=== PATIENT | male | born 1970 | race African-American/Black ===

== ENCOUNTER 2017-12-29 09:17 | Inpatient (IN) | payer OTHER ==
[2017-12-29 10:21] VITALS: BMI 29.2
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
[2017-12-29] MEDS ORDERED: MENTHOL/PHENOL 1 EACH UD MM PRN (14:28)
[2017-12-29] MEDS ORDERED: MAGNESIUM CITRATE 300 ML BOTTLE PO PRN (14:28)
[2017-12-29] MEDS ORDERED: MAG HYDROX/AL HYDROX/SIMETH 30 ML UNIT-DOSE CUP PO PRN (14:28)
[2017-12-29] MEDS ORDERED: LOPERAMIDE HCL 2 MG CAPSULE PO PRN (14:28)
[2017-12-29] MEDS ORDERED: MAGNESIUM HYDROX 2400MG/30ML ORAL SUSPENSION 30 ML CUP PO PRN (14:28)
[2017-12-29] MEDS ORDERED: P-EPHED 60MG/TRIPROLIDI 2.5MG TABLET PO PRN (14:28)
[2017-12-29] MEDS ORDERED: guaiFENesin/D-METHORPHAN HB 10 ML UNIT-DOSE CUPS PO PRN (14:28)
[2017-12-29] MEDS ORDERED: NICOTINE POLACRILEX 4 MG GUM BUC PRN (14:28)
[2017-12-29] MEDS ORDERED: METOPROLOL TARTRATE 50 MG TABLET (FP) PO ONE (15:42)
[2017-12-29] MEDS: NICOTINE 21 MG/24 HOURS TOPICAL PATCH TD SCH (15:43)
[2017-12-29] MEDS: DOCUSATE SODIUM 100 MG CAPSULE (FP) PO SCH ×2 (15:43→22:22)
[2017-12-29] MEDS: chlordiazePOXIDE HCL 25 MG CAPSULE PO PRN (15:45)
[2017-12-29] MEDS: chlordiazePOXIDE HCL 25 MG CAPSULE PO SCH ×2 (17:23→22:22)
[2017-12-29] MEDS: ACETAMINOPHEN 325 MG TABLET (FP) PO PRN (18:46)
[2017-12-29] MEDS ORDERED: MELATONIN 5 MG TABLETS PO PRN (22:00)
[2017-12-29] MEDS: THIAMINE HCL 100 MG TABLET (FP) PO SCH (22:23)
[2017-12-30 02:07] LABS: URINE APPEARANCE CLEAR; URINE BILIRUBIN NEGATIVE (<2.0 mg/dL); URINE COLOR STRAW; URINE GLUCOSE (UA) NEGATIVE (NEGATIVE); URINE KETONE NEGATIVE (NEGATIVE); URINE LEUK ESTERASE NEGATIVE (NEGATIVE); URINE NITRITE NEGATIVE (NEGATIVE); URINE PROTEIN NEGATIVE (NEGATIVE); URINE UROBILINOGEN NEGATIVE mg/dL (0.2-1.0)
[2017-12-30] MEDS: chlordiazePOXIDE HCL 25 MG CAPSULE PO SCH ×4 (05:50→22:17)
[2017-12-30] MEDS: DOCUSATE SODIUM 100 MG CAPSULE (FP) PO SCH ×3 (05:50→22:17)
[2017-12-30] MEDS ORDERED: amLODIPine BESYLATE 10 MG TABLET (FP) PO SCH (10:00)
[2017-12-30] MEDS: METOPROLOL TARTRATE 50 MG TABLET (FP) PO SCH (10:06)
[2017-12-30] MEDS: HYDROCHLOROTHIAZIDE 25 MG TABLET (FP) PO SCH (10:06)
[2017-12-30] MEDS: NICOTINE 21 MG/24 HOURS TOPICAL PATCH TD SCH (10:07)
[2017-12-30] MEDS: PRENATAL VITAMINS W/ FOLIC ACID TABLET (FP) PO SCH (10:07)
--- NOTE | 2017-12-30 16:22 | CONSULT ---
[facility] Psychiatric Consult - Data Date of interview: 12/30/17 Admission source: [facility] Identifying data: Firts admission to [facility] for this 47 y/o AA male seeking vdetox treatment on for alcohol and cannabis dependence.Patient is single,a father of three,homeless,unemployed and deprived of income. Substance Abuse History: Discussed in this interview.Patient cofirms the following [facility] report : Smoking history: Current every day smoker. Have you smoked in the past 12 months: Yes. Aproximately how many cigarettes per day: 15. Cigars Per Day: 0. Hx Chewing Tobacco Use: No. Initiated information on smoking cessation: Yes. 'Breaking Loose' booklet given: 12/29/17. - Substance & Tx. History. Hx Alcohol Use: Yes. Hx Substance Use: Yes. Substance Use Type : Alcohol, Marijuana. Hx Substance Use Treatment: Yes (11/2017 [facility]) . - Substances Abused. Alcohol. Route: Oral. Frequency: Daily. Amount used: 2-3 fifths of rum or cognac. Age of first use: 41. Date of Last Use: . Marijuana/Hashish. Route: Smoking. Frequency: Daily. Amount used: 1/4 of an ounce. Age of first use: 41. Date of Last Use: 12/27/17 Medical History: Hypertension and dyslipidemia. Psychiatric History: Patient denies. Physical/Sexual Abuse/Trauma History: Patient denies. Additional Comment: Urine Drug Screen Results: THC-Marijuana, BZO- Benzodiazepines.Noted. Mental Status Exam - Mental Status Exam Alert and Oriented to: Time, Place, Person Cognitive Function: Good Patient Appearance: Well Groomed Mood: Withdrawn, Hopeful Affect: Appropriate, Normal Range Patient Behavior: Fatigued, Cooperative Speech Pattern: Clear Voice Loudness: Normal Thought Process: Intact, Goal Oriented Thought Disorder: Not Present Hallucinations: Denies Suicidal Ideation: Denies Homicidal Ideation: Denies Insight/Judgement: Poor Sleep: Well Appetite: Good Muscle strength/Tone: Normal Gait/Station: Normal Psychiatric Findings - Problem List ([place] 1, 2,3) (1) Alcohol dependence with uncomplicated withdrawal Current Visit: Yes Status: Acute (2) Marijuana dependence Current Visit: Yes Status: Acute (3) Nicotine dependence Current Visit: Yes Status: Acute Qualifiers: Nicotine product type: cigarettes Substance use status: in withdrawal Qualified Code(s): F17.213 - Nicotine dependence, cigarettes, with withdrawal - Initial Treatment Plan Initial Treatment Plan: Psychoeducation.Sleep hygiene.Detoxification in progress.Observation.
[2017-12-30] MEDS ORDERED: cloNIDine HCL 0.1 MG TABLET PO ONE (21:35)
--- NOTE | 2017-12-30 21:39 | PN ---
S Progress Note Note: Patient alert and oriented w/ current B/P: 178/109. On Metoprolol. Vital Signs - 24 hr 12/30/17 12/30/17 12/30/17 00:43 03:36 06:17 Temperature 97.6 F Pulse Rate 79 Respiratory 18 18 18 Rate Blood Pressure 145/86 12/30/17 12/30/17 12/30/17 09:56 13:22 17:36 Temperature 97.7 F 97.0 F L 97.6 F Pulse Rate 87 74 80 Respiratory 20 18 18 Rate Blood Pressure 172/111 153/98 158/96 12/30/17 21:12 Temperature 97.4 F L Pulse Rate 86 Respiratory 18 Rate Blood Pressure 173/109 Labs: Potassium level on 12/28/17 was 3.4. Plan: Will give CloNidine 0.2 mg PO now. Will add amlodipine to B/P daily medication regimen. Continue metoprolol. Repeat electrolytes in am. Continue detox protocol.
[2017-12-30] MEDS: THIAMINE HCL 100 MG TABLET (FP) PO SCH (22:17)
[2017-12-31] MEDS: DOCUSATE SODIUM 100 MG CAPSULE (FP) PO SCH ×3 (05:25→22:12)
[2017-12-31] MEDS: chlordiazePOXIDE HCL 25 MG CAPSULE PO SCH ×2 (05:26→10:26)
[2017-12-31 10:23] LABS: POTASSIUM 3.4 mmol/L (3.5-5.1)
[2017-12-31] MEDS: NICOTINE 21 MG/24 HOURS TOPICAL PATCH TD SCH (10:26)
[2017-12-31] MEDS: METOPROLOL TARTRATE 50 MG TABLET (FP) PO SCH (10:26)
[2017-12-31] MEDS: HYDROCHLOROTHIAZIDE 25 MG TABLET (FP) PO SCH (10:26)
[2017-12-31] MEDS: PRENATAL VITAMINS W/ FOLIC ACID TABLET (FP) PO SCH (10:26)
[2017-12-31] MEDS: amLODIPine BESYLATE 10 MG TABLET (FP) PO SCH (10:26)
[2017-12-31] MEDS: chlordiazePOXIDE 5 MG CAPSULE PO SCH ×2 (17:21→22:12)
--- NOTE | 2017-12-31 18:08 | PN ---
S CIWA - CIWA Score Nausea/Vomitin-No Nausea/No Vomiting Muscle Tremors: None Anxiety: 0-No Anxiety, at Ease Agitation: 0-Normal Activity Paroxysmal Sweats: No Perspiration Orientation: 0-Oriented Tacttile Disturbances: 0-None Auditory Disturbances: 0-None Visual Disturbances: 0-None Headache: 0-None Present CIWA-Ar Total Score: 0 BHS Progress Note (SOAP) Subjective: pt states he is OK today Obj: Vital Signs - 24 hr 12/30/17 12/31/17 12/31/17 21:12 00:30 03:30 Temperature 97.4 F L Pulse Rate 86 Respiratory 18 20 18 Rate Blood Pressure 173/109 12/31/17 12/31/17 12/31/17 06:25 11:14 13:51 Temperature 97.7 F 97.9 F 97.9 F Pulse Rate 70 80 71 Respiratory 20 20 18 Rate Blood Pressure 144/88 145/80 156/94 12/31/17 18:03 Temperature 99.6 F Pulse Rate 73 Respiratory 19 Rate Blood Pressure 161/91 Laboratory Tests 12/30/17 12/30/17 12/31/17 00:45 06:00 07:40 Sodium 141 Potassium 3.4 L Chloride 104 Carbon Dioxide 33 H Anion Gap 4 L Urine Color Straw Urine Appearance Clear Urine pH 7.0 Ur Specific [place] 1.008 Urine Protein Negative Urine Glucose (UA) Negative Urine Ketones Negative Urine Blood Negative Urine Nitrite Negative Urine Bilirubin Negative Urine Urobilinogen Negative Ur Leukocyte Esterase Negative RPR Titer Nonreactive BP high today UA WNL Active Medications Acetaminophen (Tylenol -) 650 mg PO Q4H PRN PRN Reason: FEVER Last Admin: 12/29/17 18:46 Dose: 650 mg Al Hydroxide/Mg Hydroxide (Mylanta Oral Suspension -) 30 ml PO Q6H PRN PRN Reason: DYSPEPSIA Amlodipine Besylate (Norvasc -) 10 mg PO DAILY [facility] Last Admin: 12/31/17 10:26 Dose: 10 mg Chlordiazepoxide HCl (Librium -) 15 mg PO [id number] DION Stop: 01/01/18 11:01 Last Admin: 12/31/17 17:21 Dose: 15 mg Chlordiazepoxide HCl (Librium -) 25 mg PO Q4H PRN PRN Reason: WITHDRAWAL(CONT SUBST) Stop: 01/01/18 14:27 Last Admin: 12/29/17 15:45 Dose: 25 mg Chlordiazepoxide HCl (Librium -) 10 mg PO [id number] [facility] Stop: 01/02/18 11:01 Docusate Sodium (Colace -) 100 mg PO TID [facility] Last Admin: 12/31/17 13:09 Dose: 100 mg Eucalyptus/Menthol/Phenol/Sorbitol (Cepastat Lozenge -) 1 each MM Q4H PRN PRN Reason: SORE THROAT Guaifenesin (Robitussin Dm -) 10 ml PO Q6H PRN PRN Reason: COUGH Hydrochlorothiazide (Hctz -) 25 mg PO DAILY [facility] Last Admin: 12/31/17 10:26 Dose: 25 mg Hydroxyzine Pamoate (Vistaril -) 50 mg PO Q4H PRN PRN Reason: AGITATION Ibuprofen (Motrin -) 400 mg PO Q6H PRN PRN Reason: PAIN LEVEL 4-6 Loperamide HCl (Imodium -) 4 mg PO Q6H PRN PRN Reason: DIARRHEA Magnesium Citrate (Citroma -) 300 ml PO Q48H PRN PRN Reason: CONSTIPATION Magnesium Hydroxide (Milk Of Magnesia -) 30 ml PO DAILY PRN PRN Reason: CONSTIPATION Melatonin (Melatonin) 5 mg PO HS PRN PRN Reason: INSOMNIA Metoprolol Tartrate (Lopressor -) 50 mg PO DAILY [facility] Last Admin: 12/31/17 10:26 Dose: 50 mg Nicotine (Nicoderm Patch -) 21 mg TD DAILY [facility] Last Admin: 12/31/17 10:26 Dose: 21 mg Nicotine Polacrilex (Nicorette Gum -) 4 mg BUC Q2H PRN PRN Reason: NICOTINE REPLACEMENT RX Multivit/Folic Acid/Iron ( Vitamins (Sjr) -) 1 tab PO DAILY [facility] Last Admin: 12/31/17 10:26 Dose: 1 tab Pseudoephedrine/Triprolidine (Actifed -) 1 combo PO TID PRN PRN Reason: NASAL CONGESTION Thiamine HCl (Vitamin B1 -) 100 mg PO HS [facility] Last Admin: 12/30/17 22:17 Dose: 100 mg Ass: 47 years old male with long history of alcohol nicotine dependence has hypertension- continue detox protocol, will increase dose of metoprolol if BP remains high- maybe high because of detoxing
[2017-12-31] MEDS: IBUPROFEN 400 MG TABLET (FP) PO PRN (20:50)
[2017-12-31] MEDS: THIAMINE HCL 100 MG TABLET (FP) PO SCH (22:12)
[2017-12-31] MEDS: chlordiazePOXIDE HCL 25 MG CAPSULE PO PRN (22:15)
[2018-01-01] MEDS: chlordiazePOXIDE 5 MG CAPSULE PO SCH ×2 (05:33→10:11)
[2018-01-01] MEDS: DOCUSATE SODIUM 100 MG CAPSULE (FP) PO SCH ×3 (05:33→22:08)
[2018-01-01] MEDS: amLODIPine BESYLATE 10 MG TABLET (FP) PO SCH (10:11)
[2018-01-01] MEDS: METOPROLOL TARTRATE 50 MG TABLET (FP) PO SCH (10:11)
[2018-01-01] MEDS: PRENATAL VITAMINS W/ FOLIC ACID TABLET (FP) PO SCH (10:11)
[2018-01-01] MEDS: HYDROCHLOROTHIAZIDE 25 MG TABLET (FP) PO SCH (10:11)
[2018-01-01] MEDS: NICOTINE 21 MG/24 HOURS TOPICAL PATCH TD SCH (10:11)
--- NOTE | 2018-01-01 11:17 | PN ---
S CIWA - CIWA Score Nausea/Vomitin-No Nausea/No Vomiting Muscle Tremors: 4-Moderate,w/Arms Extend Anxiety: 4-Mod. Anxious/Guarded Agitation: 4-Moderately Restless Paroxysmal Sweats: 1-Minimal Palms Moist Orientation: 0-Oriented Tacttile Disturbances: 0-None Auditory Disturbances: 0-None Visual Disturbances: 0-None Headache: 0-None Present CIWA-Ar Total Score: 13 BHS Progress Note (SOAP) Subjective: SLIGHT ANXIETY, FATIGUE. PT REPORTS DETOX PROCEEDING WELL. ALERT O X 3. Objective: 01/01/18 11:15 Vital Signs 01/01/18 01/01/18 01/01/18 03:30 06:06 10:41 Temperature 97.6 F 98.3 F Pulse Rate 68 55 L Respiratory 18 20 20 Rate Blood Pressure 145/88 176/106 Laboratory Tests 12/30/17 12/30/17 12/31/17 00:45 06:00 07:40 Sodium 141 Potassium 3.4 L Chloride 104 Carbon Dioxide 33 H Anion Gap 4 L Urine Color Straw Urine Appearance Clear Urine pH 7.0 Ur Specific [place] 1.008 Urine Protein Negative Urine Glucose (UA) Negative Urine Ketones Negative Urine Blood Negative Urine Nitrite Negative Urine Bilirubin Negative Urine Urobilinogen Negative Ur Leukocyte Esterase Negative RPR Titer Nonreactive OTHER LABS PENDING Assessment: 01/01/18 11:17 WITHDRAWAL SX Plan: CONTINUE DETOX
[2018-01-01] MEDS ORDERED: HYDROCHLOROTHIAZIDE 25 MG TABLET (FP) PO SCH (14:45)
[2018-01-01] MEDS: chlordiazePOXIDE HCL 10 MG CAPSULE PO SCH ×2 (17:40→22:08)
[2018-01-01] MEDS: hydrOXYzine PAMOATE 50 MG CAPSULE (FP) PO PRN ×2 (17:40→22:08)
[2018-01-01] MEDS: THIAMINE HCL 100 MG TABLET (FP) PO SCH (22:08)
[2018-01-01] MEDS: IBUPROFEN 400 MG TABLET (FP) PO PRN (22:10)
[2018-01-01] MEDS ORDERED: cloNIDine HCL 0.1 MG TABLET PO ONE (23:45)
[2018-01-02] MEDS: DOCUSATE SODIUM 100 MG CAPSULE (FP) PO SCH ×3 (05:01→22:04)
[2018-01-02] MEDS: chlordiazePOXIDE HCL 10 MG CAPSULE PO SCH ×2 (05:01→10:13)
[2018-01-02] MEDS: PRENATAL VITAMINS W/ FOLIC ACID TABLET (FP) PO SCH (10:13)
[2018-01-02] MEDS: NICOTINE 21 MG/24 HOURS TOPICAL PATCH TD SCH (10:13)
[2018-01-02] MEDS: amLODIPine BESYLATE 10 MG TABLET (FP) PO SCH (10:13)
[2018-01-02] MEDS: METOPROLOL TARTRATE 50 MG TABLET (FP) PO SCH (10:13)
[2018-01-02] MEDS: HYDROCHLOROTHIAZIDE 25 MG TABLET (FP) PO SCH (10:13)
[2018-01-02] MEDS ORDERED: POTASSIUM CHLORIDE ORAL LIQUID 20 MEQ/15 ML PO ONE (11:23)
--- NOTE | 2018-01-02 11:27 | PN ---
BHS Progress Note (SOAP) Subjective: ANXIETY,TREMORS,FATIGUE. Objective: 01/02/18 11:23 Vital Signs 01/02/18 01/02/18 01/02/18 03:30 06:13 09:09 Temperature 97 F L 96.2 F L Pulse Rate 68 72 Respiratory 18 20 18 Rate Blood Pressure 146/95 139/87 Laboratory Tests 12/30/17 12/30/17 12/31/17 00:45 06:00 07:40 Sodium 141 Potassium 3.4 L Chloride 104 Carbon Dioxide 33 H Anion Gap 4 L Urine Color Straw Urine Appearance Clear Urine pH 7.0 Ur Specific [place] 1.008 Urine Protein Negative Urine Glucose (UA) Negative Urine Ketones Negative Urine Blood Negative Urine Nitrite Negative Urine Bilirubin Negative Urine Urobilinogen Negative Ur Leukocyte Esterase Negative RPR Titer Nonreactive LABS DONE AT [facility] ER Assessment: 01/02/18 12:30 WITHDRAWAL SX BORDERLINE HYPOKALEMIA Plan: CONTINUE DETOX
[2018-01-02 14:39] LABS: ANION GAP 8 MMOL/L (8-16); BLOOD UREA NITROGEN 13 mg/dL (7-18); CALCIUM 9.3 mg/dL (8.5-10.1); CHLORIDE 98 mmol/L (98-107); CO2 32 mmol/L (21-32); CREATININE 1.1 mg/dL (0.7-1.3); GLUCOSE,RANDOM 233 mg/dL (74-106); POTASSIUM 3.6 mmol/L (3.5-5.1); SODIUM 138 mmol/L (136-145)
[2018-01-02] MEDS: IBUPROFEN 400 MG TABLET (FP) PO PRN (19:40)
--- NOTE | 2018-01-02 21:06 | PN ---
[facility] Progress Note Note: Patient denies w/drawal symptoms but noted to have some anxiety and tremors earlier today. CMP Sodium 138 mmol/L (136-145) 01/02/18 13:18 Potassium 3.6 mmol/L (3.5-5.1) 01/02/18 13:18 Chloride 98 mmol/L (98-107) 01/02/18 13:18 Carbon Dioxide 32 mmol/L (21-32) 01/02/18 13:18 Anion Gap 8 MMOL/L (8-16) 01/02/18 13:18 BUN 13 mg/dL (7-18) 01/02/18 13:18 Creatinine 1.1 mg/dL (0.7-1.3) 01/02/18 13:18 Creat Clearance w eGFR > 60 (>60) 01/02/18 13:18 Random Glucose 233 mg/dL (74-106) H D 01/02/18 13:18 Calcium 9.3 mg/dL (8.5-10.1) 01/02/18 13:18 Elevated Random Glucose noted. Vital Signs - 24 hr 01/01/18 01/01/18 01/02/18 21:42 23:41 00:30 Temperature 97.4 F L Pulse Rate 91 H Respiratory 20 18 Rate Blood Pressure 154/102 161/114 01/02/18 01/02/18 01/02/18 01:00 03:30 06:13 Temperature 97 F L 97 F L Pulse Rate 74 68 Respiratory 16 18 20 Rate Blood Pressure 165/102 146/95 01/02/18 01/02/18 09:09 17:32 Temperature 96.2 F L 99.7 F H Pulse Rate 72 82 Respiratory 18 18 Rate Blood Pressure 139/87 150/98 Plan: BGM w/o sliding scale. Hgb A!C in am Consider dietary changes and medication management based on lab results.
[2018-01-02] MEDS: hydrOXYzine PAMOATE 50 MG CAPSULE (FP) PO PRN (22:03)
[2018-01-02] MEDS: THIAMINE HCL 100 MG TABLET (FP) PO SCH (22:03)
[2018-01-03] MEDS: DOCUSATE SODIUM 100 MG CAPSULE (FP) PO SCH (05:31)
[2018-01-03] MEDS: ACETAMINOPHEN 325 MG TABLET (FP) PO PRN (05:32)
[2018-01-03 09:12] VITALS: BP 147/96; PULSE 82; TEMP 96.8
[2018-01-03] MEDS: HYDROCHLOROTHIAZIDE 25 MG TABLET (FP) PO SCH (10:28)
[2018-01-03] MEDS: METOPROLOL TARTRATE 50 MG TABLET (FP) PO SCH (10:28)
[2018-01-03] MEDS: PRENATAL VITAMINS W/ FOLIC ACID TABLET (FP) PO SCH (10:28)
[2018-01-03] MEDS: amLODIPine BESYLATE 10 MG TABLET (FP) PO SCH (10:28)
[2018-01-03] MEDS: NICOTINE 21 MG/24 HOURS TOPICAL PATCH TD SCH (10:29)
--- NOTE | 2018-01-03 13:00 | PN ---
B[facility] Progress Note (SOAP) Subjective: DETOX COMPLETED. ALERT O X 3. NAD. PT REFERRED TO REHAB TODAY. Objective: 01/03/18 12:59 Vital Signs 01/03/18 01/03/18 05:56 09:11 Temperature 97.2 F L 96.8 F L Pulse Rate 76 82 Respiratory 18 18 Rate Blood Pressure 155/102 147/96 Laboratory Tests 12/30/17 12/30/17 12/31/17 00:45 06:00 07:40 Sodium 141 Potassium 3.4 L Chloride 104 Carbon Dioxide 33 H Anion Gap 4 L BUN Creatinine Creat Clearance w eGFR POC Glucometer Random Glucose Hemoglobin A1c % Calcium Urine Color Straw Urine Appearance Clear Urine pH 7.0 Ur Specific [place] 1.008 Urine Protein Negative Urine Glucose (UA) Negative Urine Ketones Negative Urine Blood Negative Urine Nitrite Negative Urine Bilirubin Negative Urine Urobilinogen Negative Ur Leukocyte Esterase Negative RPR Titer Nonreactive 01/02/18 01/02/18 01/03/18 13:18 21:33 05:30 Sodium 138 Potassium 3.6 Chloride 98 Carbon Dioxide 32 Anion Gap 8 BUN 13 Creatinine 1.1 Creat Clearance w eGFR > 60 POC Glucometer 360 244 Random Glucose 233 H D Hemoglobin A1c % Calcium 9.3 Urine Color Urine Appearance Urine pH Ur Specific [place] Urine Protein Urine Glucose (UA) Urine Ketones Urine Blood Urine Nitrite Urine Bilirubin Urine Urobilinogen Ur Leukocyte Esterase RPR Titer 01/03/18 07:00 Sodium Potassium Chloride Carbon Dioxide Anion Gap BUN Creatinine Creat Clearance w eGFR POC Glucometer Random Glucose Hemoglobin A1c % 7.3 H Calcium Urine Color Urine Appearance Urine pH Ur Specific [place] Urine Protein Urine Glucose (UA) Urine Ketones Urine Blood Urine Nitrite Urine Bilirubin Urine Urobilinogen Ur Leukocyte Esterase RPR Titer Assessment: 01/03/18 13:00 MEDICALLY STABLE Plan: D/C PT TODAY
--- NOTE | 2018-01-03 13:02 | DS ---
[facility] Detox Discharge Summary Admission Date: 12/29/17 Discharge Date: 01/03/18 - History Present History: Alcohol Dependence Additional Comments: DETOX COMPLETED. ALERT OX 3. NAD. PT WILL FOLLOW UP AT [facility] WITH HIS PRIMARY CARE PROVIDER. Pertinent Past History: PLEASE SEE DX BELOW - Physical Exam Results Vital Signs: Vital Signs Temperature 96.8 F L 01/03/18 09:11 Pulse Rate 82 01/03/18 09:11 Respiratory Rate 18 01/03/18 09:11 Blood Pressure 147/96 01/03/18 09:11 O2 Sat by Pulse Oximetry (%) Pertinent Admission Physical Exam Findings: WITHDRAWAL SX Laboratory Tests 12/30/17 12/30/17 12/31/17 00:45 06:00 07:40 Sodium 141 Potassium 3.4 L Chloride 104 Carbon Dioxide 33 H Anion Gap 4 L BUN Creatinine Creat Clearance w eGFR POC Glucometer Random Glucose Hemoglobin A1c % Calcium Urine Color Straw Urine Appearance Clear Urine pH 7.0 Ur Specific [place] 1.008 Urine Protein Negative Urine Glucose (UA) Negative Urine Ketones Negative Urine Blood Negative Urine Nitrite Negative Urine Bilirubin Negative Urine Urobilinogen Negative Ur Leukocyte Esterase Negative RPR Titer Nonreactive 01/02/18 01/02/18 01/03/18 13:18 21:33 05:30 Sodium 138 Potassium 3.6 Chloride 98 Carbon Dioxide 32 Anion Gap 8 BUN 13 Creatinine 1.1 Creat Clearance w eGFR > 60 POC Glucometer 360 244 Random Glucose 233 H D Hemoglobin A1c % Calcium 9.3 Urine Color Urine Appearance Urine pH Ur Specific [place] Urine Protein Urine Glucose (UA) Urine Ketones Urine Blood Urine Nitrite Urine Bilirubin Urine Urobilinogen Ur Leukocyte Esterase RPR Titer 01/03/18 07:00 Sodium Potassium Chloride Carbon Dioxide Anion Gap BUN Creatinine Creat Clearance w eGFR POC Glucometer Random Glucose Hemoglobin A1c % 7.3 H Calcium Urine Color Urine Appearance Urine pH Ur Specific [place] Urine Protein Urine Glucose (UA) Urine Ketones Urine Blood Urine Nitrite Urine Bilirubin Urine Urobilinogen Ur Leukocyte Esterase RPR Titer - Treatment Hospital Course: Detox Protocol Followed, Detoxed Safely, Responded well, Discharged Condition Good, Rehab Referral Accepted Patient has Accepted a Rehab Referral to: [facility] - Medication Discharge Medications: Ambulatory Orders Amlodipine Besylate [Norvasc -] 10 mg PO DAILY 12/29/17 Hydrochlorothiazide 25 mg PO DAILY 09/01/18 Metoprolol Tartrate [Lopressor -] 50 mg PO DAILY 12/31/17 - Diagnosis (1) Alcohol dependence with uncomplicated withdrawal Status: Acute (2) Hypertension Status: Acute Qualifiers: Hypertension type: essential hypertension Qualified Code(s): I10 - Essential (primary) hypertension (3) Marijuana dependence Status: Acute (4) Nicotine dependence Status: Acute Qualifiers: Nicotine product type: cigarettes Substance use status: in withdrawal Qualified Code(s): F17.213 - Nicotine dependence, cigarettes, with withdrawal (5) Constipation Status: Chronic Qualifiers: Constipation type: slow transit constipation Qualified Code(s): K59.01 - Slow transit constipation - AMA Did Patient Leave Against Medical Advice: No
== END 2018-01-03 10:38 | disposition home or self-care (01) | DRG 775 ==
LOC: YASAS 09:17 → Y3N 15:11
PROC: HZ2ZZZZ Detoxification Services for Substance Abuse Treatment (ICD-10-PCS; principal; 2017-12-29)
DX: F10.230 Alcohol dependence with withdrawal, uncomplicated (principal); F12.20 Cannabis dependence, uncomplicated; F17.213 Nicotine dependence, cigarettes, with withdrawal; I10 Essential (primary) hypertension; K59.01 Slow transit constipation; M25.473 Effusion, unspecified ankle; R73.09 Other abnormal glucose
CPT/HCPCS: 36415; 80048; 80051; 81003; 82962; 83036; 86593; J0735